=== PATIENT | female | born 1935 | race Two or more races ===

== ENCOUNTER 2017-09-28 23:05 | Emergency (ER) | payer MEDICARE, OTHER ==
[~2017-09-28] VITALS: Ht 165.1 cm; Wt 65.8 kg
[~2017-09-28 23:05] MED LIST: TRAZ-144 PO
[2017-09-29] MEDS ORDERED: ACETAMINOPHEN 325 MG TABLET PO ONE (01:00)
--- NOTE | 2017-09-29 01:05 | NUR ---
PT GIVEN DEMONSTRATION OF HOW TO PROPERLY USE WALKER. PT WAS ABLE TO SUCCESSFULLY REPEAT.
[2017-09-29] MEDS ORDERED: ACETAMINOPHEN 325 MG TABLET ONE (01:10)
--- NOTE | 2017-09-29 01:20 | NUR ---
Patient discharged to home in stable conditon. Written and verbal after care instructions given. Patient verbalizes understanding of instructions. Patient reported reduced knee pain prior to discharge. Patient able to ambulate with assistance of walker. Patient left with all personal belongings.
[2017-09-29 01:25] VITALS: BP 138/72
== END 2017-09-29 01:20 | disposition home or self-care (01) ==
LOC: ER 23:09
DX: M17.12 Unilateral primary osteoarthritis, left knee (principal); Z88.5 Allergy status to narcotic agent; M25.552 Pain in left hip
CPT/HCPCS: 73560; 99284; A4663